=== PATIENT | female | born 1995 | race Two or more races ===

== ENCOUNTER 2024-10-30 11:16 | Outpatient (CLI) | payer OTHER | END 2024-10-30 11:21 | disposition home or self-care (01) | LOC: PRENATAL 11:16 | DX: O44.00 Complete placenta previa NOS or without hemorrhage, unspecified trimester (principal); O43.90 Unspecified placental disorder, unspecified trimester; O28.3 Abnormal ultrasonic finding on antenatal screening of mother; Z3A.19 19 weeks gestation of pregnancy ==

== ENCOUNTER 2024-12-29 10:24 | Outpatient (CLI) | payer OTHER | END 2024-12-29 10:27 | disposition home or self-care (01) | LOC: PRENATAL 10:24 | PROVIDERS: ATTEND Obstetrics & Gynecology Maternal & Fetal Medicine | DX: O26.849 Uterine size-date discrepancy, unspecified trimester (principal); O43.90 Unspecified placental disorder, unspecified trimester; O28.3 Abnormal ultrasonic finding on antenatal screening of mother; Z3A.28 28 weeks gestation of pregnancy ==

== ENCOUNTER 2025-02-09 10:14 | Outpatient (CLI) | payer OTHER | END 2025-02-09 10:16 | disposition home or self-care (01) | LOC: PRENATAL 10:14 | PROVIDERS: ATTEND Obstetrics & Gynecology Maternal & Fetal Medicine | DX: O26.849 Uterine size-date discrepancy, unspecified trimester (principal); O36.8130 Decreased fetal movements, third trimester, not applicable or unspecified; O43.90 Unspecified placental disorder, unspecified trimester; O28.3 Abnormal ultrasonic finding on antenatal screening of mother; Z3A.33 33 weeks gestation of pregnancy ==

== ENCOUNTER 2025-03-06 01:53 | Inpatient (IN) | payer OTHER ==
[~2025-03-06] VITALS: Ht 160 cm; Wt 78.0 kg
[2025-03-06] VITALS (10 sets, daily range): BP systolic 93–126; BP diastolic 59–79
[2025-03-06] MEDS ORDERED: RINGERS SOLUTION,LACTATED 1,000 ML IV SCH (02:00)
[2025-03-06] MEDS ORDERED: MORPHINE SULFATE 4 MG/ML VIAL IV PRN (03:00)
[2025-03-06 03:05] LABS: URINE APPEARANCE Clear; URINE BILIRRUBIN Negative (NEGATIVE); URINE BLOOD Moderate; URINE COLOR Yellow; URINE GLUCOSE Negative (NEGATIVE); URINE KETONE Negative (NEGATIVE); URINE LEUKOCYTE Negative; URINE NITRATE Negative; URINE PROTEIN Negative (NEGATIVE); URINE UROBILINOGEN 1.0 E.U./dl
[2025-03-06 03:08] LABS: URINE BACTERIA 406.7 uL (0.0-1933); URINE EPITHELIAL CELLS 9.9 uL (0.0-38.8); URINE RBC 102.6 uL (0.0-20.8); URINE WBC 4.9 uL (0.0-23.2)
[2025-03-06 03:39] LABS: INR < 0.93
[2025-03-06 04:03] LABS: BASO % 0.4 % (0.1-1.2); EOS # 0.18 (0.04-0.54); EOS % 1.4 % (0.7-7.0); LYMPH # 2.63 (1.18-3.74); LYMPH % 20.4 % (19.3-53.1); MEAN PLATELET VOLUME 10.80 fl (9.4-12.4); MONO # 1.55 (0.24-0.82); MONO % 12.0 % (4.7-12.5); NEUT # 8.41 (1.56-6.13); NEUT % 65.1 % (34.0-71.1); RED CELL DISTRIBUTION WIDTH 15.2 % (11.6-14.4)
[2025-03-06 04:05] LABS: ALT/SGPT 18.0 U/L (12-78); AST/SGOT 19.0 U/L (15-37); BILIRUBIN TOTAL 0.27 mg/dL (0.3-1.2); BUN CREA RATIO 20.0 (7.0-25.0); GFR 159.5; GLOBULINA 3.9 G/DL (2.4-3.5); GLUCOSE FASTING 72.0 mg/dL (65-100); OSMOLALITY SERUM 277.0 MOSM/KG (275-295)
[2025-03-06 04:13] LABS: CREATININE SERUM 0.46 mg/dL (0.55-1.02)
[2025-03-06 04:15] LABS: URINE CAST 0.14 uL (0.0-1.40)
[2025-03-06] MEDS ORDERED: OXYTOCIN 20 UNITS/500ML RL PIGGYBAG IV ONE (11:53)
[2025-03-06] MEDS ORDERED: OXYTOCIN 500 ML IV SCH (12:30)
[2025-03-06] MEDS ORDERED: AMPICILLIN SODIUM 2,000 MG VIAL ONE (15:15)
[2025-03-06] MEDS ORDERED: AMPICILLIN SODIUM 2,000 MG VIAL IV ONE (16:00)
[2025-03-06] MEDS ORDERED: AMPICILLIN SODIUM 1,000 MG VIAL IV SCH (16:00)
[2025-03-06] MEDS ORDERED: MORPHINE SULFATE 4 MG/ML CARTRIDGE IV ONE (17:00)
[2025-03-06] MEDS ORDERED: OXYTOCIN 20 UNITS/1000ML RL PIGGYBAG IV ONE (18:15)
[2025-03-06] MEDS ORDERED: ERYTHROMYCIN BASE OPHT 1GM EACH TUBE OP ONE (18:15)
[2025-03-06] MEDS ORDERED: CHLORHEXIDINE GLUCONATE 120 ML BOTTLE TOP ONE (18:16)
[2025-03-06] MEDS ORDERED: LIDOCAINE HCL 1% 10ML VIAL ONE (18:16)
[2025-03-06] MEDS ORDERED: OXYTOCIN 1,000 ML IV SCH (20:00)
[2025-03-06] MEDS ORDERED: ACETAMINOPHEN 500 MG GEL..CAP PO PRN (20:00)
[2025-03-07 00:22] LABS: BASO % 0.2 % (0.1-1.2); EOS # 0.01 (0.04-0.54); EOS % 0.0 % (0.7-7.0); LYMPH # 1.61 (1.18-3.74); LYMPH % 6.0 % (19.3-53.1); MEAN PLATELET VOLUME 10.00 fl (9.4-12.4); MONO # 1.32 (0.24-0.82); MONO % 4.9 % (4.7-12.5); NEUT # 23.67 (1.56-6.13); NEUT % 88.3 % (34.0-71.1); RED CELL DISTRIBUTION WIDTH 14.8 % (11.6-14.4)
[2025-03-07 01:52] VITALS: BP 108/66
[2025-03-07 08:00] VITALS: BP 101/62
[2025-03-07] MEDS ORDERED: PNV,CALCIUM 72/IRON/FOLIC ACID 1 TAB TABLET PO SCH (09:00)
[2025-03-07 16:28] VITALS: BP 102/66
[2025-03-08] VITALS: BP 103/65
[2025-03-08 07:00] VITALS: BP 122/85
[2025-03-08 12:41] LABS: BASO % 0.4 % (0.1-1.2); EOS # 0.17 (0.04-0.54); EOS % 1.4 % (0.7-7.0); LYMPH # 2.63 (1.18-3.74); LYMPH % 21.1 % (19.3-53.1); MEAN PLATELET VOLUME 9.70 fl (9.4-12.4); MONO # 1.12 (0.24-0.82); MONO % 9.0 % (4.7-12.5); NEUT # 8.40 (1.56-6.13); NEUT % 67.5 % (34.0-71.1); RED CELL DISTRIBUTION WIDTH 15.7 % (11.6-14.4)
[2025-03-08 16:00] VITALS: BP 110/71
[2025-03-09] VITALS: BP 90/58
[2025-03-09 08:43] VITALS: BP 105/61
[2025-03-09 16:36] VITALS: BP 110/67
[2025-03-09] MEDS ORDERED: VITABEX IRON C1 EACH PO (19:07)
== END 2025-03-09 20:40 | disposition home or self-care (01) | DRG 807 ==
LOC: LDR → OB/GYN 21:01
PROVIDERS: Specialist; ADMIT Student in an Organized Health Care Education/Training Program; ATTEND Student in an Organized Health Care Education/Training Program
PROC: 4A1HXCZ Monitoring of Products of Conception, Cardiac Rate, External Approach (ICD-10-PCS; 2025-03-06)
PROC: 10E0XZZ Delivery of Products of Conception, External Approach (ICD-10-PCS; principal; 2025-03-07)
PROC: 0KQM0ZZ Repair Perineum Muscle, Open Approach (ICD-10-PCS; 2025-03-07)
DX: O70.1 Second degree perineal laceration during delivery (principal); Z37.0 Single live birth; O42.02 Full-term premature rupture of membranes, onset of labor within 24 hours of rupture; Z3A.37 37 weeks gestation of pregnancy